=== PATIENT | female | born 1960 | race Caucasian/White ===

== ENCOUNTER 2017-06-27 08:17 | Outpatient (CLI) | payer OTHER ==
--- NOTE | 2017-06-27 11:56 | ULT ---
ULTRASOUND ABDOMEN: HISTORY: Hepatitis C. COMPARISON: None. FINDINGS: The hepatic echotexture is coarsened. The liver measures 15.4 cm in length. Portal vein is patent, antegrade flow. No abnormal hepatic mass. The gallbladder outlet measures 6 mm. The right kidney measures 9.3 x 4.4 x 4.6 cm without mass, hydronephrosis, or calcifications. The spleen measures 15.1 x 5.6 x 7.7 cm. The left kidney measures 10.9 x 3.9 x 4.3 cm. Evaluation of the pancreas is limited. The gallbladder has been removed. IMPRESSION: 1. Coarsened hepatic echotexture suggests hepatocellular disease. No evidence of mass. 2. Prior cholecystectomy with reservoir effect of the common bile duct. POS: [facility]
== END 2017-06-27 08:18 | disposition home or self-care (01) ==
LOC: ULT 08:17
PROVIDERS: ATTEND Family Medicine
DX: B19.20 Unspecified viral hepatitis C without hepatic coma (principal); K76.89 Other specified diseases of liver
CPT/HCPCS: 76700